=== PATIENT | female | born 1995 | race Native Hawaiian/Other Pacific Islander ===

== ENCOUNTER 2021-12-12 10:51 | Emergency (ER) | payer OTHER ==
[~2021-12-12] VITALS: Ht 157.5 cm; Wt 95.3 kg
[2021-12-12 11:05] VITALS: BP 135/73; TEMP 99
== END 2021-12-12 12:35 | disposition home or self-care (01) ==
LOC: ED 10:51
DX: S90.32XA Contusion of left foot, initial encounter (principal); X50.1XXA Overexertion from prolonged static or awkward postures, initial encounter; Y92.89 Other specified places as the place of occurrence of the external cause
CPT/HCPCS: 99282; J1885